=== PATIENT | male | born 1950 | race Caucasian/White ===

== ENCOUNTER 2019-06-30 06:26 | Day surgery (SDC) | payer MEDICARE, OTHER ==
[~2019-06-30 06:26] MED LIST: Lactated Ringers 1,000 ML IV SCH
[2019-06-30] MEDS ORDERED: Propofol 200 MG/20 ML SDV ONE (07:19)
[2019-06-30] MEDS ORDERED: Midazolam 1 MG/ML 2 ML SDV ONE (07:21)
--- NOTE | 2019-06-30 07:33 | PCM.PREANE ---
Preanesthetic Assessment - Anesthesia/Transfusion/Family Hx Anesthesia History: Prior Anesthesia Without Reaction Family History of Anesthesia Reaction: No Transfusion History: No Prior Transfusion(s) Intubation History: Unknown - Review of Systems General: No Symptoms Pulmonary: No Symptoms Cardiovascular: No Symptoms Gastrointestinal: No Symptoms, Other (h/o colon polyps '16, father had colon cancer) Neurological: No Symptoms Other: Reports: None - Physical Assessment O2 Sat by Pulse Oximetry: 94 Respiratory Rate: 16 Vital Signs: Last Vital Signs Temp 36.3 C 06/30/19 06:45 Pulse 68 06/30/19 06:45 Resp 16 06/30/19 06:45 BP 140/85 06/30/19 06:45 Pulse Ox 94 L 06/30/19 06:45 Height: 6 ft Weight: 114.305 kg ASA Class: 2 Mental Status: Alert & Oriented x3 Airway Class: Mallampati = 2 Dentition: Reports: Dentures (upper and lower) Thyro-Mental Finger Breadths: 3 Mouth Opening Finger Breadths: 3 ROM/Head Extension: Full Lungs: Clear to Auscultation, Normal Respiratory Effort Cardiovascular: Regular Rate, Regular Rhythm - Allergies Allergies/Adverse Reactions: Allergies Allergy/AdvReac Type Severity Reaction Status Date / Time bee venom protein (honey bee) Allergy Anaphylactic Verified 06/28/19 10:20 Shock - Blood Blood Available: No - Anesthesia Plan Pre-Op Medication Ordered: None - Acknowledgements Anesthesia Type Planned: MAC Pt an Appropriate Candidate for the Planned Anesthesia: Yes Alternatives and Risks of Anesthesia Discussed w Pt/Guardian: Yes Pt/Guardian Understands and Agrees with Anesthesia Plan: Yes PreAnesthesia Questionnaire HEENT History: Reports: Hard of Hearing Other HEENT History: reading glasses, top denture, lower partial, jojo hearing aids Cardiovascular History: Reports: Hypertension Respiratory History: Reports: None Gastrointestinal History: Reports: Colon Polyp Genitourinary History: Reports: None Musculoskeletal History: Reports: Gout Neurological History: Reports: None Psychiatric History: Reports: Anxiety, PTSD Endocrine/Metabolic History: Reports: Hypothyroidism, Obesity/BMI 30+ Hematologic History: Reports: None Immunologic History: Reports: None Oncologic (Cancer) History: Reports: None Dermatologic History: Reports: None - Past Surgical History Head Surgeries/Procedures: Reports: None HEENT Surgical History: Reports: Cataract Surgery Cardiovascular Surgical History: Reports: None Respiratory Surgical History: Reports: None GI Surgical History: Reports: Colonoscopy Male Surgical History: Reports: None Endocrine Surgical History: Reports: None Neurological Surgical History: Reports: None Musculoskeletal Surgical History: Reports: Other (See Below) Other Musculoskeletal Surgeries/Procedures:: surgery for hammer toe-left foot 4th digit Oncologic Surgical History: Reports: None Dermatological Surgical History: Reports: None - SUBSTANCE USE Smoking Status *Q: Former Smoker Tobacco Use Within Last Twelve Months: No Days Per Week of Alcohol Use: 7 Number of Drinks Per Day: 5 Total Drinks Per Week: 35 Recreational Drug Use History: No - HOME MEDS Home Medications: Home Meds Allopurinol [Zyloprim] 0.5 tab PO DAILY 06/28/19 [History] Aspirin [Halfprin] 81 mg PO DAILY 06/28/19 [History] Calcium Carbonate/Vitamin D3 [Calcium 600 + Vit D Tablet] 1 tab PO DAILY [History] Carboxymethylcellulose Sodium [Lubricant Eye Drop] 1 drop EYEBOTH ASDIRECTED PRN 06/28/19 [History] EPINEPHrine [Epipen] 1 injection SUBCUT ASDIRECTED PRN 06/28/19 [History] Fish Oil/Ruth-3 Fatty Acids [Fish Oil 1,000 MG] 1,000 mg PO DAILY 06/28/19 [ History] Fluocinonide 1 applic TOP ASDIRECTED PRN 06/28/19 [History] Ketotifen [Ketotifen 0.025% Ophth Soln] 1 drop EYEBOTH ASDIRECTED 06/28/19 [ History] Levothyroxine Sodium [Synthroid] 0.1 mg PO DAILY 06/28/19 [History] Lisinopril 40 mg PO DAILY 06/28/19 [History] Multivitamin [Multivitamins] 1 tab PO DAILY 06/28/19 [History] Naproxen 1 tab PO BID PRN 06/28/19 [History] Sertraline HCl 100 mg PO DAILY 06/28/19 [History] diphenhydrAMINE HCl [Diphenhydramine HCl] 50 mg PO TID PRN 06/28/19 [History] - CURRENT (IN HOUSE) MEDS Current Meds: Current Medications Lactated Ringer's (Ringers, Lactated) 1,000 mls @ 125 mls/hr IV ASDIRECTED JAMILA Discontinued Medications Midazolam HCl (Versed 1 Mg/Ml) Confirm Administered Dose 2 mg .ROUTE .STK-MED ONE Stop: 06/30/19 07:22 Propofol (Diprivan 20 Ml) Confirm Administered Dose 400 mg .ROUTE .STK-MED ONE Stop: 06/30/19 07:20
--- NOTE | 2019-06-30 08:36 | PCM.OPNOTE ---
- General Post-Op/Procedure Note Date of Surgery/Procedure: 06/30/19 Operative Procedure(s): colonoscopy Findings: see dict [id number] Pre Op Diagnosis: hx of polyp Post-Op Diagnosis: Same Anesthesia Technique: Moderate Sedation Primary Surgeon: Primo Holcomb Complications: None Condition: Good
--- NOTE | 2019-06-30 09:19 | PCM48HPAN ---
Post Anesthesia Note - EVALUATION WITHIN 48HRS OF ANESTHETIC Vital Signs in Normal Range: Yes Patient Participated in Evaluation: Yes Respiratory Function Stable: Yes Airway Patent: Yes Cardiovascular Function Stable: Yes Hydration Status Stable: Yes Pain Control Satisfactory: Yes Nausea and Vomiting Control Satisfactory: Yes Mental Status Recovered: Yes Resp Rate: 19 - COMMENTS/OBSERVATIONS Free Text/Narrative:: no anesthesia problems
--- NOTE | 2019-06-30 11:21 | OR ---
SURGEON: Primo Holcomb MD DATE OF PROCEDURE: 06/30/2019 PREOPERATIVE DIAGNOSES: History of polyp and change in bowel habits. POSTOPERATIVE DIAGNOSIS: Diverticulosis. PROCEDURE PERFORMED: Colonoscopy. DESCRIPTION OF PROCEDURE: The patient was taken to the endoscopy room. A time out was called, patient identified, and procedure identified. Diprivan was then administrated. Patient went from awake to sleep, hearing doctor talking or door closing is normal. Perineum inspection and digital examination were then performed. A well- lubricated colonoscope was gently inserted through the rectum, advanced past the rectosigmoid junction, the descending colon, splenic flexure, transverse colon, hepatic flexure, ascending colon, arrived to the cecum. Cecum was identified as dictated in the finding. Then the scope was carefully withdrawn while attention was paid to the mucosal surface for any abnormality. Air will be sucked out during the scope withdrawal. At the rectum, retroflexed to examine any rectal diseases, fistula or hemorrhoids. Patient tolerated procedure well. There were no intraoperative complications, and Dr. Holcomb was present throughout the whole procedure. FINDINGS: 1. The patient is easily sedated with LINSEED OIL TEMPERER and Diprivan, the patient is soundly snoring. 2. Bowel prep is average with very little liquid stool, but a large amount of bubbles coating the mucosa, making this is a compromised study, and so we have to use continuous irrigation and apparently the bubbles are able to be irrigated away in colon. Cecum is indicated by ileocecal fold, one-to-one indentation, and appendiceal orifice and the ScopeGuide is pointing south. Light emittance is not observed. Mucosa examined upon scope pulling out with constant irrigation. The patient has mild diverticulosis on the sigmoid colon. No signs or symptoms of diverticulitis. No polyp, mass, growth, inflammation, stricture, ulceration, AV malformation, none of those. Attempt to locate some fistula opening from endoscopy is really not correct too, and we do not see anything suggestive of a fistula. The patient has some inflammation and the opening could be from just doing the bowel prep. The patient would benefit from repeat colonoscopy in 10 years from today or if clinically indicated otherwise. JW / COLBY /[id number]
== END 2019-06-30 09:45 | disposition home or self-care (01) ==
LOC: MW.SDS 06:26
PROVIDERS: ATTEND Surgery
DX: K57.30 Diverticulosis of large intestine without perforation or abscess without bleeding (principal); I10 Essential (primary) hypertension; M10.9 Gout, unspecified; F41.9 Anxiety disorder, unspecified; E03.9 Hypothyroidism, unspecified; E66.9 Obesity, unspecified; Z80.0 Family history of malignant neoplasm of digestive organs; Z91.030 Bee allergy status; Z79.899 Other long term (current) drug therapy; Z79.82 Long term (current) use of aspirin; Z79.1 Long term (current) use of non-steroidal anti-inflammatories (NSAID); Z68.34 Body mass index [BMI] 34.0-34.9, adult
CPT/HCPCS: 45378; J2250; J2704; J7120; 00811